=== PATIENT | female | born 1995 | race Two or more races ===

== ENCOUNTER → 2021-05-29 | Outpatient (CLI) | payer OTHER ==
--- NOTE | 2021-05-29 11:35 | RAD ---
US PELVIS COMPLETE Clinical Indication: Reason: CHECK IUD PLACEMENT, THREADS NOT VIS ON PELVIC EXAM Comparison: None. TECHNIQUE: Real-time ultrasound imaging of the pelvis using transabdominal window is performed. Findings: The urinary bladder is unremarkable. Uterus measures 11.5 x 4.5 x 2.7 cm. No focal abnormality of the myometrium. IUD appears in appropriate position. The ovaries are similar in size and demonstrate normal blood flow. No evidence of adnexal mass. No cu l-de-sac free fluid is identified. IMPRESSION: IUD appears in appropriate position. Electronically signed by: Russ Curry MD (05/29/2021 11:32 AM) [id number]
== END ==
LOC: US 09:00
PROVIDERS: ATTEND Nurse Practitioner Family
DX: Z30.431 Encounter for routine checking of intrauterine contraceptive device (principal)
CPT/HCPCS: 76856